=== PATIENT | male | born 1990 | race African-American/Black ===

== ENCOUNTER 2019-04-29 13:56 | Emergency (ER) | payer MEDICAID, OTHER ==
[~2019-04-29] VITALS: Ht 188 cm; Wt 104.3 kg
[2019-04-29 14:10] VITALS: BP 147/92
[2019-04-29 15:41] LABS: Basophils # (auto) 0.1 uL; Basophils % (auto) 0.6 % (0.0-2.0); Eosinophils # (auto) 0 uL; Eosinophils % (auto) 0.1 % (0.0-7.0); Hematocrit 52.9 % (41.0-53.0); Hemoglobin 17.7 g/dL (13.5-17.5); Lymphocytes # (auto) 2.9 uL; Lymphocytes % (auto) 21.6 % (10.0-50.0); Mean Corpuscular Hemoglobin 29.4 pg (28.0-32.0); Mean Corpuscular Hgb Conc. 33.5 g/dL (32.0-36.0); Mean Corpuscular Volume 87.9 fL (80.0-100.0); Monocytes # (auto) 1.4 uL; Monocytes % (auto) 10.6 % (0.0-12.0); Neutrophils # (auto) 9.2 uL; Neutrophils % (auto) 67.1 % (37.0-80.0); Nucleated Red Blood Cells % 0.1 %; Platelet Count (auto) 201 10^3/uL (140-450); Red Blood Cells 6.01 10^6/uL (4.5-5.90); Red Cell Distribution Width 13.7 % (11.8-14.3); White Blood Cell 13.6 10^3/uL (4.4-10.8)
[2019-04-29 15:50] LABS: Urine Bacteria FEW /hpf (None Seen); Urine Blood TRACE /uL (Negative); Urine Hyaline Cast MOD /lpf (0 - 2); Urine Mucus FEW (None Seen); Urine Specific Gravity 1.033 (1.001-1.035); Urine WBC 3 /hpf (0 - 3)
[2019-04-29] MEDS ORDERED: SODIUM CHLORIDE 0.9% 1,000 ML IVB ONE (15:52)
[2019-04-29 15:56] LABS: Potassium 3.3 mmol/L (3.5-5.1)
[2019-04-29] MEDS ORDERED: PROMETHAZINE HCL 25 MG/ML 1ML IV PRN (16:00)
[2019-04-29] MEDS ORDERED: KETOROLAC TROMETH 15 mg/ml 1ML VL IV ONE (16:00)
[2019-04-29 16:05] LABS: Albumin 5.4 g/dL (3.4-5.0); BUN/Creatinine Ratio 20.3; Bilirubin, Total 1.7 mg/dL (0.2-1.0); Calcium 10.1 mg/dL (8.5-10.1); Total Protein 9.8 g/dL (6.4-8.2)
[2019-04-29 17:11] LABS: Magnesium 2.4 mg/dL (1.6-2.6)
== END 2019-04-29 16:13 | disposition left against medical advice (07) ==
LOC: ER 13:56
DX: R11.2 Nausea with vomiting, unspecified (principal); R19.7 Diarrhea, unspecified; R10.84 Generalized abdominal pain; Z53.21 Procedure and treatment not carried out due to patient leaving prior to being seen by health care provider
CPT/HCPCS: 36415; 80053; 81001; 83690; 83735; 85025

== ENCOUNTER 2019-05-15 23:23 | Emergency (ER) | payer MEDICAID ==
[~2019-05-15] VITALS: Ht 188 cm; Wt 95.7 kg
[2019-05-15] MEDS ORDERED: SODIUM CHLORIDE 0.9% 500 ML IV ONE (23:58)
[2019-05-16] MEDS ORDERED: ONDANSETRON HCL 4 MG/2 ML VIAL IV ONE
[2019-05-16] MEDS ORDERED: MORPHINE SULFATE 4 MG/ML SYR/VIAL IV ONE (00:15)
[2019-05-16 00:17] LABS: Basophils # (auto) 0 uL; Basophils % (auto) 0.5 % (0.0-2.0); Eosinophils # (auto) 0 uL; Eosinophils % (auto) 0.3 % (0.0-7.0); Hematocrit 46.5 % (41.0-53.0); Hemoglobin 15.9 g/dL (13.5-17.5); Lymphocytes # (auto) 1.9 uL; Lymphocytes % (auto) 25.5 % (10.0-50.0); Mean Corpuscular Hemoglobin 29.4 pg (28.0-32.0); Mean Corpuscular Hgb Conc. 34.1 g/dL (32.0-36.0); Mean Corpuscular Volume 86.2 fL (80.0-100.0); Monocytes # (auto) 0.8 uL; Monocytes % (auto) 10.9 % (0.0-12.0); Neutrophils # (auto) 4.7 uL; Neutrophils % (auto) 62.8 % (37.0-80.0); Nucleated Red Blood Cells % 0.2 %; Platelet Count (auto) 246 10^3/uL (140-450); White Blood Cell 7.5 10^3/uL (4.4-10.8)
[2019-05-16 00:37] LABS: Albumin 4.6 g/dL (3.4-5.0); BUN/Creatinine Ratio 9.6; Calcium 9.7 mg/dL (8.5-10.1)
[2019-05-16 00:39] LABS: Bilirubin, Total 1.4 mg/dL (0.2-1.0); Total Protein 8.3 g/dL (6.4-8.2)
[2019-05-16] MEDS ORDERED: SODIUM CHLORIDE 0.9% 1,000 ML IV ONE (03:00)
[2019-05-16] MEDS ORDERED: POTASSIUM CHL 20 Meq TABLET PO ONE (03:00)
[2019-05-16] MEDS ORDERED: HYDROcodone-ACET 5/325MG TAB PO ONE (03:00)
[2019-05-16 04:00] VITALS: BP 121/65
== END 2019-05-16 05:01 | disposition home or self-care (01) ==
LOC: ER 23:24
DX: K29.70 Gastritis, unspecified, without bleeding (principal); F12.188 Cannabis abuse with other cannabis-induced disorder; R11.2 Nausea with vomiting, unspecified; I10 Essential (primary) hypertension; F17.210 Nicotine dependence, cigarettes, uncomplicated; Z88.0 Allergy status to penicillin
CPT/HCPCS: 36415; 74176; 80053; 83690; 85025; 93005; 94761; 96361; 96374; 96375; 99284; J2270; J2405; J7030; J7040

== ENCOUNTER 2019-06-07 12:25 | Emergency (ER) | payer MEDICAID ==
[~2019-06-07] VITALS: Ht 188 cm; Wt 86.2 kg
[2019-06-07 14:22] LABS: Basophils # (auto) 0 uL; Basophils % (auto) 0.5 % (0.0-2.0); Eosinophils # (auto) 0 uL; Eosinophils % (auto) 0.1 % (0.0-7.0); Hematocrit 48.3 % (41.0-53.0); Hemoglobin 16.8 g/dL (13.5-17.5); Lymphocytes # (auto) 1.9 uL; Lymphocytes % (auto) 25.5 % (10.0-50.0); Mean Corpuscular Hgb Conc. 34.7 g/dL (32.0-36.0); Mean Corpuscular Volume 83.6 fL (80.0-100.0); Monocytes # (auto) 0.8 uL; Monocytes % (auto) 10.6 % (0.0-12.0); Neutrophils # (auto) 4.7 uL; Neutrophils % (auto) 63.3 % (37.0-80.0); Platelet Count (auto) 212 10^3/uL (140-450); Red Blood Cells 5.77 10^6/uL (4.5-5.90); Red Cell Distribution Width 12.6 % (11.8-14.3); White Blood Cell 7.4 10^3/uL (4.4-10.8)
[2019-06-07 14:27] LABS: Albumin 4.8 g/dL (3.4-5.0); BUN/Creatinine Ratio 8.5; Calcium 10.2 mg/dL (8.5-10.1)
[2019-06-07 14:39] LABS: Bilirubin, Total 1.6 mg/dL (0.2-1.0); Total Protein 8.5 g/dL (6.4-8.2)
[2019-06-07 14:47] LABS: Potassium 2.7 mmol/L (3.5-5.1)
[2019-06-07] MEDS ORDERED: PANTOPRAZOLE 40 MG/10 ML VIAL INJ IV STA (15:28)
[2019-06-07] MEDS ORDERED: PROCHLORPERAZINE EDISYLATE 5 MG/ML 2ML VIAL IV ONE (15:30)
[2019-06-07] MEDS ORDERED: MORPHINE SULFATE 4 MG/ML SYR/VIAL IV ONE (15:30)
[2019-06-07] MEDS ORDERED: SODIUM CHLORIDE 0.9% 1,000 ML IV ONE (16:00)
[2019-06-07] MEDS ORDERED: POTASSIUM CHL 20MEQ/100ML 100 ML IV ONE (16:00)
[2019-06-07 16:14] LABS: Magnesium 2.2 mg/dL (1.6-2.6)
[2019-06-07] MEDS ORDERED: FAMOTIDINE (10MG/ML) 2ML VL IV ONE (16:15)
[2019-06-07 19:31] VITALS: BP 134/82
== END 2019-06-07 20:10 | disposition home or self-care (01) ==
LOC: ER 12:25
DX: F12.188 Cannabis abuse with other cannabis-induced disorder (principal); I10 Essential (primary) hypertension; E87.6 Hypokalemia; R73.9 Hyperglycemia, unspecified; Z88.0 Allergy status to penicillin
CPT/HCPCS: 36415; 80053; 83690; 83735; 85025; 94761; 96365; 96366; 96375; 99283; J0780; J2270; J3480; J3490